=== PATIENT | female | born 2000 | race Caucasian/White ===

== ENCOUNTER → 2021-07-08 | Outpatient (CLI) | payer OTHER ==
--- NOTE | 2021-07-08 12:10 | EKG ---
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
--- NOTE | 2021-07-08 12:53 | RAD ---
EXAM: Chest, 2 views. HISTORY: Tachycardia. COMPARISON: None. FINDINGS: 2 views of the chest are obtained. There is no infiltrate, pleural effusion or pneumothorax . The heart is normal in size. IMPRESSION: No acute pulmonary finding. Electronically signed by: Desiree Thomas MD (07/08/2021 12:50 PM) [id number]
== END ==
LOC: RAD 11:15
PROVIDERS: ATTEND Pediatrics
DX: R00.0 Tachycardia, unspecified (principal)
CPT/HCPCS: 71046; 93005